=== PATIENT | female | born 1945 | race Caucasian/White ===

== ENCOUNTER 2017-09-23 15:36 | Emergency (ER) | payer MEDICARE ==
[~2017-09-23] VITALS: Ht 170.2 cm; Wt 95.3 kg
[2017-09-23] MEDS ORDERED: OXYBUTYNIN 5 MG5 M2 PO (15:48)
[2017-09-23] MEDS ORDERED: ATENOLOL-CHLOR1 EACH PO (15:49)
[2017-09-23] MEDS ORDERED: CELEXA20 MG PO (15:49)
[2017-09-23] MEDS ORDERED: NORCO 5-325 TA1 EACH PO (17:38)
[2017-09-23 18:18] VITALS: BP 127/70
[2017-10-07] MEDS ORDERED: ALLEGRA ALLERGY60 MG PO (11:04)
[2017-10-07] MEDS ORDERED: PRILOSEC OTC20 MG PO (11:04)
== END 2017-09-23 18:19 | disposition home or self-care (01) ==
LOC: M.ERS 15:36
DX: S52.091A Other fracture of upper end of right ulna, initial encounter for closed fracture (principal); S42.211A Unspecified displaced fracture of surgical neck of right humerus, initial encounter for closed fracture; I10 Essential (primary) hypertension; F17.210 Nicotine dependence, cigarettes, uncomplicated; Z88.0 Allergy status to penicillin; W01.0XXA Fall on same level from slipping, tripping and stumbling without subsequent striking against object, initial encounter; Y93.01 Activity, walking, marching and hiking; Y92.481 Parking lot as the place of occurrence of the external cause; Y99.8 Other external cause status

== ENCOUNTER 2017-10-08 06:01 | Observation (INO) | payer MEDICARE ==
[~2017-10-08] VITALS: Ht 170.2 cm; Wt 95.3 kg
[~2017-10-08 06:01] MED LIST: ALLEGRA ALLERGY60 MG PO; ATENOLOL-CHLOR1 EACH PO; CELEXA20 MG PO; NORCO 5-325 TA1 EACH PO; OXYBUTYNIN 5 MG5 M2 PO; PRILOSEC OTC20 MG PO
[2017-10-08] MEDS ORDERED: TYLENOL EXTRA500 MG PO (06:22)
[2017-10-08 06:31] VITALS: BP 129/80
[2017-10-08 06:34] LABS: HEMOGLOBIN 13.6 gm/dL (12.0-15.0); MCH 31.1 pg (26.0-34.0); MCHC 34.2 g/dL (28.0-37.0); MPV 8.3 fl. (7.2-11.1); RBC 4.39 mil/uL (4.20-5.00); RDW-CV 15.3 % (10.5-14.5); WBC 6.6 thou/uL (4.0-11.0)
[2017-10-08 06:52] LABS: CALCIUM 9.2 mg/dL (8.5-10.1); CREATININE 1.1 mg/dL (0.6-1.3); POTASSIUM 3.6 mmol/L (3.5-5.1)
--- NOTE | 2017-10-08 11:17 | NUR ---
PATIENT ARRIVED ON UNIT FROM PACU AT 1115. COMPLETED REASSESSMENT. VITAL SIGNS AND SPO2 STABLE. CAPNO PLACED. SCD'S IN PLACE. NO NAUSEA AND VOMITING. PATIENT DENIES PAIN AT THIS TIME. SLING AND ICE PACK IN PLACE. FALL CONTRACT SIGNED. COMPLETED HOURLY ROUNDING. CALL LIGHT WITHIN REACH. WILL CONTINUE TO MONITOR.
[2017-10-08 11:49] VITALS: BP 138/73
--- NOTE | 2017-10-08 16:07 | NUR ---
PATIENT REMAINED ALERT AND ORIENTED X'S 4. VITAL SIGNS AND SPO2 STABLE. CAPNO IN PLACE. PAIN WELL CONTROLLED WITH PAIN MEDS. TOLERATED DIET, NO NAUSEA AND VOMITING. VOIDED WITHOUT ISSUE. IV CLEAN, FLUIDS INFUSING. SCD'S, YELLOW SOCKS IN PLACE. SLING OVER SHOULDER IN PLACE. FRESH ICE PACK. COMPLETED HOURLY ROUNDING. CALL LIGHT WITHIN REACH. WILL CONTINUE TO MONITOR.
[2017-10-08 16:17] VITALS: BP 131/68
--- NOTE | 2017-10-08 17:28 | EKG ---
[place] [address] ELECTROCARDIOGRAM REPORT Name: NICK WELLS Room: [address]#: [id number] Admission: 10/08/17 Attend Phys: Kai Do DO Discharge: Date of : 49 Report #: [id number] THIS REPORT FOR: //name// [facility] Test Date: 2017-10-08 Test Time: 06:35:01 Pat Name: NICK VALDERRAMATAYLORChris Department: Room: [facility] Gender: F Seasonal Warehouse Associate: JEANINE : 1945 Requested By: Kai Do Order Number: [id number] Jordi MD: Mukesh Lange Measurements Intervals [place] Rate: 45 P: 48 DE: 183 QRS: 18 QRSD: 90 T: 35 QT: 502 QTc: 435 Interpretive Statements Sinus bradycardia Baseline wander in lead(s) V6 No previous ECG available for comparison Electronically Signed On 10-08-2017 17:28:20 CDT by Mukesh Lange [email or web address] <ELECTRONICALLY SIGNED> By: Mukesh Lange MD, [facility] 10/08/17 1728 4 4 Mukesh Lange MD, FACC /EPI
[2017-10-09] VITALS: BP 119/69
[2017-10-09 04:00] VITALS: BP 134/68
--- NOTE | 2017-10-09 07:25 | NUR ---
PATIENT HAS SLEPT WELL THROUGHOUT THE NIGHT WITHOUT ANY ISSUES. PAIN CONTROLLED WITH ORAL PAIN MEDICATION. VSS ON 3L 02 VIA NASAL CANNULA. DRESSING TO RIGHT ARM IS C/D/I AND SLING IN PLACE. ICE PACK TO RIGHT SHOULDER PRN. IV IN LEFT WRIST-SL. PATIENT INSTRUCTED TO USE CALL LIGHT WHEN NEEDING ASSISTANCE. HOURLY ROUNDS MADE. WILL CONTINUE WITH PLAN OF CARE AND NURSING TO MONITOR.
[2017-10-09 08:00] VITALS: BP 140/70
[2017-10-09] MEDS ORDERED: HYDROCODONE-AP1 EAC6 PO (12:06)
[2017-10-09 12:14] VITALS: BP 140/70
[2017-10-09] MEDS ORDERED: ASPIR 8181 MG PO (12:27)
--- NOTE | 2017-10-09 16:00 | NUR ---
PT.BEING DISCHARGED TODAY. SAID HER PAIN IS UNDER CONTROL. GAIT STEADY. SHE SAID HER SON IS COMING TO STAY WITH HER UNTIL SATURDAY. SHE HAS BEEN STAYING AT THE '[facility]END[facility] STAY[facility] HOTEL IN [facility]. SHE SAID SHE DID LIVE IN [place] BUT MOVED TO [place] TO BE CLOSER TO HER MOM. THEY RECENTLY HAD TO MOVE HER MOM TO A LTC FACILITY IN [place]. SHE SAID AFTER SHE GETS BETTER SHE WILL TRY TO FIND A HOUSE IN [place]. PT.SAID SHE DOES NOT USE ANY DME AND IS NORMALLY [place] HOME. HER SISTER IS COMING TO PICK HER UP. SHE WAS INQUIRING ABOUT HOW TO GET ON MEDICAID. TOLD HER I WOULD MAKE A REFERRAL TO [facility] AND THEY WOULD CALL HER TO SEE IF SHE MIGHT QUALIFY. FAXED FACE SHEET TO JOSE [phone].
--- NOTE | 2017-11-05 10:45 | H ---
[address] [address] HISTORY AND PHYSICAL Name: NICK WELLS Natasha Room: [address] [place] Son#: [id number] Admission: 10/08/17 Attend Phys: Kai Do DO Discharge: 10/09/17 Date of : 49 Report #: [id number] THIS REPORT FOR: //name// CC: Kai Do NO PCP DATE OF SERVICE: 10/08/2017 HISTORY OF PRESENT ILLNESS: The patient is a 71-year-old female who presents to [facility] for operative fixation of her right elbow. She saw my partner, Dr. Coe in clinic on 10/03. Dr. Coe contacted me directly regarding this patient's care and her fracture. We both agree that this would require operative fixation, as it was a displaced olecranon fracture. He had discussed surgery with the patient and her son in detail at that point in time and I saw her this morning and she is complaining of minimal pain. No numbness and tingling in her extremity. She has no issues, complaints or concerns. She had some bruising and swelling before; however, she says that she feels like that has resolved, as she had bruising in her fingers and that has gone away. When I asked her when she injured this, she injured it the Saturday before her emergency department visit, which was on 09/23. Therefore, this fracture is approximately 20 days out from injury at this point. She currently rates her pain at 4/10. ALLERGIES: PENICILLIN, which only causes hives. MEDICATIONS: Mary Kate, oxybutynin, atenolol, hydrochlorothiazide, citalopram, hydrocodone and acetaminophen given to her by the emergency department. SOCIAL HISTORY: She lives alone, is retired. She denies alcohol use. She does smoke tobacco products daily, at least 1 pack a day per her report. Denies illicit drug use. PAST MEDICAL HISTORY: Anxiety, depression, urinary incontinence, gastric reflux, gout, hyperlipidemia, hypertension. PAST SURGICAL HISTORY: Hysterectomy with ovaries, brain surgery. Orthopedic history of right total knee replacement. FAMILY HISTORY: Cardiovascular disease, osteoarthritis, hypertension, thyroid disease. REVIEW OF SYSTEMS: A 14-point was completed and is negative today except for musculoskeletal. See HPI for right upper extremity. PHYSICAL EXAMINATION: VITAL SIGNS: Her vital signs were reviewed. She is 5 feet 7 inches tall, [place] [address] HISTORY AND PHYSICAL Name: NICK WELLS Room: [address]#: [id number] Admission: 10/08/17 Attend Phys: Kai Do DO Discharge: 10/09/17 Date of : 49 Report #: [id number] weight 110 pounds. Overall, her vitals are stable today. GENERAL: She is alert and oriented times 3. HEENT: Head normocephalic. Eyes: Extraocular muscles are intact bilaterally. Ears slightly decreased hearing bilaterally. Nose: Nares patent. LUNGS: Nonlabored breathing. CARDIOVASCULAR: She had a palpable radial pulse and good cap refill in the right upper extremity. ABDOMEN: Soft. PSYCHIATRIC: She is cooperative. NEUROLOGIC: Intact distally in that extremity. MUSCULOSKELETAL: Splint was taken down. There is no excoriation. The skin is intact with good wrinkle sign. Swelling is resolved. When comparing to previous notes, minimal bruising. Compartments soft and compressible. IMAGING DATA: Imaging reviewed from [facility], as well as from our office shows displaced comminuted olecranon fracture. IMPRESSION: Closed displaced comminuted right olecranon fracture. PLAN: We had a long conversation today regarding her diagnosis and the recommendation of operative fixation of this fracture. I addressed any questions she had regarding the plan for surgery. I went over the risks and complications of surgery, they include, but are not limited to infection that could require surgical treatment, long-term antibiotics and/or sequela of end-organ damage, Clostridium difficile colitis, resistance, hematopoietic dysfunction etc, neurovascular injury that could be permanent, limb and life threatening, wound healing complications that could require long-term wound care, plastic surgery, and other issues bleeding and its associated risks, continued pain, worsening of pain, decreased function in that extremity. Discussed the patient's stiffness is very likely, especially including full extension to 0 degrees would be unlikely after this injury and surgery, malunion, nonunion, progression to arthritis, instability of the elbow, failure of hardware, failure of bone, periprosthetic fracture, need for further intervention or surgery for any reason, deep venous thrombosis, pulmonary embolism, myocardial infarction, stroke, possible . Anesthetic related complications would be discussed by the anesthesia team prior to surgery. There is also the possibility of unforeseen complications, would be addressed upon presentation. Her son was present during this entire conversation as well. After addressing any questions that they had regarding that discussion, they acknowledged and accepted those risks and stated that they understood them as presented to them. They do wish to proceed with surgery. We obtained her verbal and written consent to proceed today. Plan is for 23-hour observation. I also discussed with them at length that smoking cessation is very important. Smoking significantly increases her risk from baseline of all the above-mentioned complications; however, it specifically increases the risks of infection, wound healing complications, malunion, nonunion, [place] [address] HISTORY AND PHYSICAL Name: NICK WELLS Room: [address] [place] Son#: [id number] Admission: 10/08/17 Attend Phys: Kai Do DO Discharge: 10/09/17 Date of : 49 Report #: [id number] thrombosis, pulmonary embolism, myocardial infarction, stroke. She understands this. States is going to be difficult for her to try. I offered her what resources I have. She says she is going to try to quit on her own at this time. <ELECTRONICALLY SIGNED> By: Kai Do DO 11/05/17 1045 0746 0829Kai Do DO /nt
--- NOTE | 2017-11-05 10:58 | OP ---
[address] [address] OPERATIVE REPORT Name: RUSSELLNICK Natasha Room: [address] [place] Son#: [id number] Admission: 10/08/17 Attend Phys: Kai Do DO Discharge: 10/09/17 Date of : 49 Report #: [id number] THIS REPORT FOR: //name// CC: [facility] physician/PCP Kai Do PREOPERATIVE DIAGNOSIS: Right olecranon fracture, comminuted, closed, displaced. POSTOPERATIVE DIAGNOSIS: Right olecranon fracture, comminuted, closed, displaced. PROCEDURES: 1. Open reduction and internal fixation of a right comminuted olecranon fracture. 2. Physician-directed fluoroscopy less than 1 hour. SURGEON: Kai Do DO. CLEAT THROWER: Darrian Dennis DO. ANESTHESIA: General. ANTIBIOTICS: Ancef IV preoperatively. FLUIDS: Lactated Ringer's 1100 mL. ESTIMATED BLOOD LOSS: 25 mL. COMPLICATIONS: None. SPECIMENS: None. DRAINS: None. CONDITION: The patient is stable to PACU. INDICATIONS FOR PROCEDURE: The patient is a 71-year-old female. She had sustained a fall that led to an olecranon fracture. She presented to my partner, Dr. Coe's clinic, who contacted me directly in regards to her care. We both recommended treatment of operative fixation. I had a long conversation with her today regarding the risks and complications of surgery. Please see my consultation note for full details regarding the discussion. We obtained her verbal and written consent to proceed. DESCRIPTION OF PROCEDURE: I marked the right upper extremity in the presence of the operative team members and everyone agreed this was correct. She was taken [address] [address] OPERATIVE REPORT Name: NICK WELLS Room: [address] [place] Son#: [id number] Admission: 10/08/17 Attend Phys: Kai Do DO Discharge: 10/09/17 Date of : 49 Report #: [id number] back to the operative suite, where a briefing was performed indicating correct patient, procedure, site, antibiotics and that implants were present and sterile. All team members agreed. She was transferred over to the operative table in the supine position, well padded and secured. General anesthetic administered. A well-padded tourniquet was placed proximally on the right upper extremity. Right upper extremity was then sterilely prepped and draped in the standard fashion. Timeout performed indicating correct patient, procedure, site, antibiotics and implants were present and sterile. All team members agreed. We esmarched extremity and inflated the tourniquet at 250 mmHg. Our incision was centered over the ulna, at the tip of the olecranon. We had to curve this ulnarly as she had significant excoriation along the radial side. I did not want to take a skin incision close to this area, scalpel through skin. Careful soft tissue dissection down to the fascial layer along the ulna. Her fracture had disrupted the tissue in that area and it was only bursal in nature. We were down through the fracture site in this area. Proximally, we continued up until we got along to the triceps. Distally, we began by incising just off the crest of the ulna and made sure that we elevated the flaps for closure over our plate later. With that fascia, continued this dissection along to our fracture site. This fracture was 20 days old, making this fracture difficult to find the original ones and reduce, at least 2 times as hard. We used curettes, hemostats and gently used a rongeur to remove any fibrous tissue that was in this area. Once we had got down to the cortical curtis, we were then able to hold this together with a clamp and then two K wires. We brought in the C-arm confirming our reduction with adequate along the cortical curtis. However, there was depressed impaction of the articular segment; therefore we removed our reduction, found an articular area that has been impacted and used a hemostat to gently spread this opening and get back with articular reduction. We then reclamped our fracture site and replaced our K wires, brought in C-arm and confirmed that our cortical reduction was excellent and that we had restored this articular congruity. At that point in time, we then fashioned a plate and pinned this into position. Prior to pinning the plate into position, we had made an incision through the triceps so that the plate would lay down onto the bone. We found this incision was in line with the triceps fibers and only made what was necessary to get the plate placement. We then brought in the C-arm confirming our reduction was excellent and plate placement was excellent. We first began by placing a cortical screw along the shaft. We then drilled a home-run screw locking and then two other locking screws within the proximal fragments and the remaining two others along the shaft the third cortical screw that was the most proximal of the 3 did not have very good purchase. Therefore, this was exchanged and we placed locking screw. At this point in time, all hardware was in position. We confirmed final C-arm images with all K wires and clamps removed. We had an excellent stability of her fracture, her elbow stability, full extension, full flexion and full pronation and supination with no blocked motion. All screws were of appropriate length and extra-articular. Fracture reduction and hardware position were excellent. We [place] [id number] OPERATIVE REPORT Name: NICK WELLS Room: [address] [place] Son#: [id number] Admission: 10/08/17 Attend Phys: Kai Do DO Discharge: 10/09/17 Date of : 49 Report #: [id number] saved those images. Tourniquet was let down. Total tourniquet time was 65 minutes. We maintained hemostasis, thoroughly irrigated with 1000 mL of normal saline. Closure was with 0 Vicryl deep to reapproximate the fascia. We were able to get full closure over our plate and 0 Vicryl was also used to reapproximate our triceps, where we had made the incision in line with the fibers. We then re-irrigated the subcutaneous tissue and closure was with 2-0 Monocryl buried deep and then a running stitch of 3-0 nylon. A debriefing was performed, where we confirmed the procedure, blood loss and that all counts were correct and final; all team members agreed. Sterile dressings were applied with Xeroform gauze, 4 x 4s, soft roll and Satnam wrap. She was placed into a sling. The injury is already 20 days old; therefore did not want to place her into a splint. It was not chosen as beginning range of motion is going to be important. If I delayed her range of motion any longer, I would have significant concerns of her developing stiffness. She was taken to PACU in stable condition. POSTOPERATIVE COURSE AND EVALUATION: I spoke with her son per her wishes, addressed any questions he had. He thanked me for my time and efforts. She was resting in the PACU. All vital signs were stable. Pain was overall controlled. Neurovascularly, she was intact distally in that extremity. Dressings were clean, dry and intact. PACU films showed stable internal fixation and fracture reduction. She is going to be admitted for 23-hour observation with the plan to discharge tomorrow morning. Aspirin as directed for DVT prophylaxis. Non weight bearing of her operative extremity. Range of motion encouraged. <ELECTRONICALLY SIGNED> By: Kai Do DO 11/05/17 1058 0850 1321Janirali Do DO /nt
== END 2017-10-09 17:26 | disposition home or self-care (01) ==
LOC: M.SUR 06:01 → M.TBA 10:27 → M.ORTHSURG 10:53 → M.SUR 14:17 → M.ORTHSURG 10-09 17:26
PROVIDERS: ADMIT Orthopaedic Surgery
DX: S52.021A Displaced fracture of olecranon process without intraarticular extension of right ulna, initial encounter for closed fracture (principal); I10 Essential (primary) hypertension; F41.9 Anxiety disorder, unspecified; F32.9 Major depressive disorder, single episode, unspecified; K21.9 Gastro-esophageal reflux disease without esophagitis; E78.5 Hyperlipidemia, unspecified; M10.9 Gout, unspecified; X58.XXXA Exposure to other specified factors, initial encounter; Y93.89 Activity, other specified; Y92.89 Other specified places as the place of occurrence of the external cause; Y99.8 Other external cause status; Z90.710 Acquired absence of both cervix and uterus; Z98.890 Other specified postprocedural states; Z88.0 Allergy status to penicillin

== ENCOUNTER 2018-07-22 22:28 | Inpatient (IN) | payer OTHER, MEDICAID ==
[~2018-07-22] VITALS: Ht 170.2 cm; Wt 95.0 kg
[~2018-07-22 22:28] MED LIST changes: +ASPIR 8181 MG PO; +HYDROCODONE-AP1 EAC6 PO; +TYLENOL EXTRA500 MG PO
[2018-07-22 22:31] VITALS: BP 110/77
[2018-07-22 23:00] LABS: ABSOLUTE BASOPHILS 0.1 thou/uL (0.0-0.2); ABSOLUTE EOSINOPHILS 0.1 thou/uL (0.0-0.7); ABSOLUTE LYMPHOCYTES 1.5 thou/uL (0.8-5.3); ABSOLUTE MONOCYTES 0.8 thou/uL (0.0-1.2); ABSOLUTE NEUTROPHILS 9.2 thou/uL (1.6-8.1); BASOPHILS 0.7 %; EOSINOPHILS 1.1 %; HEMATOCRIT 39.5 % (37.0-47.0); HEMOGLOBIN 13.1 gm/dL (12.0-15.0); MCH 29.8 pg (26.0-34.0); MCHC 33.1 g/dL (28.0-37.0); MCV 89.9 fL (80.0-100.0); MONOCYTES 6.8 %; MPV 8.3 fl. (7.2-11.1); NUCLEATED RBCS 0 /100WBC; PLATELET COUNT* 263 thou/uL (150-400); POLYS 78.4 %; RDW-CV 15.4 % (10.5-14.5); WBC 11.7 thou/uL (4.0-11.0)
[2018-07-22 23:01] LABS: URINE BILIRUBIN NEGATIVE (Negative); URINE BLOOD TRACE (Negative); URINE CLARITY CLEAR; URINE COLOR YELLOW; URINE GLUCOSE-RANDOM NEGATIVE (Negative); URINE KETONES NEGATIVE (Negative); URINE LEUKOCYTES-REFLEX NEGATIVE (Negative); URINE NITRITE-REFLEX NEGATIVE (Negative); URINE PROTEIN NEGATIVE (Negative); URINE SPECIFIC GRAVITY <= 1.005 (1.005-1.030); URINE UROBILINOGEN 0.2 E.U./dl (0.2-1.0)
[2018-07-22 23:07] LABS: ANION GAP 11 mmol/L (7-16); BUN 31 mg/dL (7-18); CALCIUM 9.3 mg/dL (8.5-10.1); CHLORIDE 101 mmol/L (98-107); CO2 27 mmol/L (21-32); CREATININE 1.2 mg/dL (0.6-1.3); GLUCOSE 126 mg/dL (70-99); POTASSIUM 3.9 mmol/L (3.5-5.1); SODIUM 139 mmol/L (136-145)
[2018-07-22 23:16] LABS: TROPONIN-I LEVEL <0.06 ng/mL (<0.06)
[2018-07-23 01:35] VITALS: BP 142/73
[2018-07-23 02:00] VITALS: BP 129/71
[2018-07-23] MEDS ORDERED: SINGULAIR 10 MG10 M1 PO (02:09)
[2018-07-23] MEDS ORDERED: TYLENOL EXTRA500 MG PO (02:12)
[2018-07-23 06:15] LABS: PROTIME 10.3 Seconds (9.20-11.50)
[2018-07-23 08:31] VITALS: BP 140/72
--- NOTE | 2018-07-23 13:21 | EKG ---
[place] [address] ELECTROCARDIOGRAM REPORT Name: NICK WELLS Room: [address] ADM IN .R.#: [id number] Admission: 07/22/18 Attend Phys: Ken Montanez Discharge: Date of : 49 Report #: [id number] THIS REPORT FOR: //name// [facility] ED Test Date: 2018-07-23 Test Time: 00:07:26 Pat Name: NICK VALDERRAMATAYLORChris Department: Room: [facility] Gender: F Senior Inspector: WILLIAM : 1945 Requested By: Debbie Wilson Order Number: [id number] MD: Isaac Alvarez Measurements Intervals [place] Rate: 62 P: 54 IA: 201 QRS: 25 QRSD: 122 T: 46 QT: 460 QTc: 468 Interpretive Statements Sinus rhythm Nonspecific intraventricular conduction delay Compared to ECG 10/08/2017 06:35:01 Intraventricular conduction delay now present Sinus bradycardia no longer present Electronically Signed On 07-23-2018 13:21:03 CDT by Isaac Alvarez [email or web address] <ELECTRONICALLY SIGNED> By: Isaac Alvarez MD, [facility] 07/23/18 1321 0007 0007 Isaac Alvarez MD, [facility] /EPI
[2018-07-23 18:00] VITALS: BP 137/72
[2018-07-23 20:00] VITALS: BP 138/79
[2018-07-24] VITALS: BP 122/63
[2018-07-24 03:52] LABS: ABSOLUTE LYMPHOCYTES 0.3 thou/uL (0.8-5.3); ABSOLUTE MONOCYTES 0.7 thou/uL (0.0-1.2); ABSOLUTE NEUTROPHILS 11.8 thou/uL (1.6-8.1); BASOPHILS 0.1 %; HEMATOCRIT 33.8 % (37.0-47.0); HEMOGLOBIN 11.3 gm/dL (12.0-15.0); LYMPHOCYTES 2.2 %; MCH 30.2 pg (26.0-34.0); MCHC 33.6 g/dL (28.0-37.0); MCV 89.9 fL (80.0-100.0); MONOCYTES 5.8 %; MPV 9.2 fl. (7.2-11.1); NUCLEATED RBCS 0 /100WBC; PLATELET COUNT* 208 thou/uL (150-400); POLYS 91.9 %; RBC 3.76 mil/uL (4.20-5.00); RDW-CV 15.1 % (10.5-14.5); WBC 12.9 thou/uL (4.0-11.0)
[2018-07-24 04:21] LABS: CALCIUM 8.6 mg/dL (8.5-10.1); MAGNESIUM 1.7 mg/dL (1.8-2.4); POTASSIUM 3.6 mmol/L (3.5-5.1)
[2018-07-24 07:30] VITALS: BP 121/64
[2018-07-24 20:00] VITALS: BP 121/65
[2018-07-25 05:33] LABS: ABSOLUTE LYMPHOCYTES 0.8 thou/uL (0.8-5.3); ABSOLUTE NEUTROPHILS 10.4 thou/uL (1.6-8.1); BASOPHILS 0.3 %; EOSINOPHILS 0.4 %; HEMATOCRIT 33.2 % (37.0-47.0); HEMOGLOBIN 11.3 gm/dL (12.0-15.0); LYMPHOCYTES 6.6 %; MCH 30.1 pg (26.0-34.0); MCHC 34.1 g/dL (28.0-37.0); MCV 88.5 fL (80.0-100.0); MONOCYTES 7.8 %; MPV 9.1 fl. (7.2-11.1); NUCLEATED RBCS 0 /100WBC; PLATELET COUNT* 215 thou/uL (150-400); POLYS 84.9 %; RBC 3.75 mil/uL (4.20-5.00); RDW-CV 15.3 % (10.5-14.5); WBC 12.2 thou/uL (4.0-11.0)
[2018-07-25 05:40] LABS: CALCIUM 8.7 mg/dL (8.5-10.1); CREATININE 1.6 mg/dL (0.6-1.3); POTASSIUM 3.5 mmol/L (3.5-5.1)
--- NOTE | 2018-07-25 06:24 | OP ---
[facility] [place] [place] [address] OPERATIVE REPORT Name: NICK WELLS Room: [address] IN ..#: [id number] Admission: 07/22/18 Attend Phys: Ken Montanez Discharge: Date of : 49 Report #: [id number] THIS REPORT FOR: //name// CC: Tammie Montes DICTATED BY: Jasiel cOasio DO DATE OF SERVICE: 07/23/2018 PREOPERATIVE DIAGNOSIS: Left basicervical intertrochanteric hip fracture, closed. POSTOPERATIVE DIAGNOSIS: Left basicervical intertrochanteric hip fracture, closed. PROCEDURE: 1. Open reduction internal fixation of the left hip utilizing the Tanner gamma nail with a 130-degree size 11 nail and a 95-mm lag screw and 37.5-mm distal interlocking screw. 2. Physician-directed fluoroscopy less than 1 hour. SURGEON: William Joseph DO. FOUNDATION ASSISTANT: Jasiel Ocasio DO. ANESTHESIA: General. FLUIDS: Crystalloid per anesthesia. ESTIMATED BLOOD LOSS: 100 mL. DRAINS: None. SPECIMENS: None. COMPLICATIONS: None. CONDITION: Stable to PACU. DISPOSITION: PACU to Med/Surg. ANTIBIOTICS: 600 mg of clindamycin IV preop. INDICATIONS FOR PROCEDURE: The patient is a 72-year-old female who sustained a fall down two stairs at home last night. She fell directly onto her left hip [facility] [place] [address] OPERATIVE REPORT Name: NICK WELLS Room: [address] IN M.R.#: [id number] Admission: 07/22/18 Attend Phys: Ken Montanez Discharge: Date of : 49 Report #: [id number] and had immediate pain and inability to ambulate. She presented to the [facility] ER where x-rays identified a left basicervical intertrochanteric femur fracture. Surgery was recommended. The risks, benefits, alternatives, indications and possible complications associated with surgery were discussed with the patient and she agreed to proceed. DESCRIPTION OF PROCEDURE: The patient was met in the preoperative area. The correct site was marked. Consent was obtained. She was transferred to the operative suite and given the benefit of general anesthesia. She was then transferred to the fracture table and secured into place. All bony prominences were well-padded. She was given antibiotics within 30 minutes prior to the procedure. A timeout was performed to identify the correct patient, procedure, operative site and surgeon. All in the room were in agreement. A reduction maneuver was performed with traction, internal rotation and adduction of the left lower extremity. An appropriate reduction was verified on fluoroscopy. The left hip was then sterilely prepped and draped in the normal sterile fashion. The procedure began with the proximal incision proximal to the greater trochanter. The starting point was localized with a guidewire and fluoroscopy. The opening reamer was utilized to gain access into the intramedullary canal. A guidewire was then placed into the intramedullary canal of the femur. Appropriate position of this was confirmed on fluoroscopy. A size 13 reamer was then used to ream past the isthmus of the femur. A size 11 nail was then selected and placed into the femur in the appropriate position confirmed again on fluoroscopy. Reduction was held with a Mercado elevator pressing posteriorly on the distal fragment. The guidewire was then removed and the lag screw was placed into the femur using a guidewire. The appropriate position of this was confirmed on orthogonal fluoroscopy. The distal interlocking screw was then placed and sized appropriately. The set screw was also placed after correct positioning of the lag screw. The external guide was removed and then, final pictures were taken. The IT band was closed with 0 Vicryl in [id number]-[id number] fashion after all wounds were thoroughly irrigated. The skin was then reapproximated with 2-0 Vicryl in simple interrupted buried fashion followed by mane on the skin. A sterile Mepilex was then applied to the incisions. All needle and sponge counts were correct x 2 at the end of the case. Anesthesia was reversed by the anesthesia team. She was transferred to the PACU in stable condition. There were no complications apparent. Dr. Joseph was present and scrubbed throughout all critical aspects of the case. <ELECTRONICALLY SIGNED> By: William Joseph DO 07/25/18 0624 1707 1731Cadam Joseph DO /nt
[2018-07-25 09:10] VITALS: BP 99/64
[2018-07-25 15:32] VITALS: BP 121/66
[2018-07-25 20:00] VITALS: BP 100/70
[2018-07-26 04:59] LABS: CALCIUM 8.7 mg/dL (8.5-10.1); CREATININE 1.2 mg/dL (0.6-1.3); POTASSIUM 3.3 mmol/L (3.5-5.1)
[2018-07-26 07:20] VITALS: BP 118/68
[2018-07-26 16:00] VITALS: BP 107/65
[2018-07-26 21:00] VITALS: BP 113/63
[2018-07-27 05:03] LABS: MAGNESIUM 1.9 mg/dL (1.8-2.4)
[2018-07-27 05:04] LABS: POTASSIUM 4.6 mmol/L (3.5-5.1)
[2018-07-27 07:48] VITALS: BP 132/70
[2018-07-27 16:40] VITALS: BP 126/71
[2018-07-27 20:11] VITALS: BP 139/78
[2018-07-28 04:13] LABS: HEMATOCRIT 28.4 % (37.0-47.0); HEMOGLOBIN 9.9 gm/dL (12.0-15.0); MCH 30.5 pg (26.0-34.0); MCHC 34.7 g/dL (28.0-37.0); MCV 87.8 fL (80.0-100.0); MPV 8.7 fl. (7.2-11.1); RBC 3.24 mil/uL (4.20-5.00); RDW-CV 15.2 % (10.5-14.5); WBC 8.3 thou/uL (4.0-11.0)
[2018-07-28 04:25] LABS: CREATININE 1.2 mg/dL (0.6-1.3); MAGNESIUM 1.8 mg/dL (1.8-2.4); POTASSIUM 3.9 mmol/L (3.5-5.1)
[2018-07-28 08:00] VITALS: BP 109/74
[2018-07-28 16:00] VITALS: BP 95/66
[2018-07-28 20:00] VITALS: BP 114/77
[2018-07-29] MEDS ORDERED: ELIQUIS2.5 MG PO (09:28)
[2018-07-29] MEDS ORDERED: SENNA8.6 MG PO (09:31)
[2018-07-29] MEDS ORDERED: SENOKOT-S1 TA2 PO ×2 (09:32→11:20)
[2018-07-29] MEDS ORDERED: HYDROCODON-ACE1 EAC7 PO (09:48)
[2018-07-29] MEDS ORDERED: IPRAT-ALBUT 0.5-3 ML INH (09:48)
[2018-07-29] MEDS ORDERED: OXYCODONE HCL 55 MG PO (09:49)
[2018-07-29 11:15] VITALS: BP 114/77
[2018-07-29 11:29] VITALS: BP 114/77
[2018-07-29 12:08] VITALS: BP 114/77
[2018-07-29 17:11] VITALS: BP 114/77
== END 2018-07-29 17:00 | DRG 480 ==
LOC: M.ERS 22:28 → M.2W 23:40 → M.TBA-ER 23:40 → M.ORTHSURG 23:40 → M.2W 07-23 01:46 → M.ORTHSURG 07-24 11:17
PROVIDERS: Emergency Medicine; Family Medicine; Internal Medicine; Orthopaedic Surgery; ADMIT Internal Medicine
PROC: 0QS706Z Reposition Left Upper Femur with Intramedullary Internal Fixation Device, Open Approach (ICD-10-PCS; principal; 2018-07-23)
DX: S72.145A Nondisplaced intertrochanteric fracture of left femur, initial encounter for closed fracture (principal); N17.0 Acute kidney failure with tubular necrosis; J98.11 Atelectasis; R09.02 Hypoxemia; W01.0XXA Fall on same level from slipping, tripping and stumbling without subsequent striking against object, initial encounter; N18.3 Chronic kidney disease, stage 3 (moderate); I12.9 Hypertensive chronic kidney disease with stage 1 through stage 4 chronic kidney disease, or unspecified chronic kidney disease; F17.210 Nicotine dependence, cigarettes, uncomplicated; E83.42 Hypomagnesemia; J44.9 Chronic obstructive pulmonary disease, unspecified; R32 Unspecified urinary incontinence; Z96.651 Presence of right artificial knee joint; K21.9 Gastro-esophageal reflux disease without esophagitis; Y93.89 Activity, other specified; Y92.89 Other specified places as the place of occurrence of the external cause; Y99.8 Other external cause status; Z90.710 Acquired absence of both cervix and uterus; Z79.82 Long term (current) use of aspirin; Z88.0 Allergy status to penicillin; Z82.49 Family history of ischemic heart disease and other diseases of the circulatory system

== ENCOUNTER 2021-01-18 12:56 | Inpatient (IN) | payer OTHER ==
[~2021-01-18] VITALS: Ht 170.2 cm; Wt 80.8 kg
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
--- NOTE | ~2021-01-18 | EEG ---
[place] [address] EEG STUDY REPORT Name: NICK WELLS Room: [address] IN .R.#: [id number] Admission: 01/18/21 Attend Phys: Rogelio Gunderson MD Discharge: Date of : 49 Report #: [id number] THIS REPORT FOR: cc: Tammie Davis MD, Ghazal A. MD Khosla,Noah Mariano MD ~ DATE OF SERVICE: 01/19/2021 This patient is being evaluated for altered mental status. EEG was done by placing the electrode by standard 10-20 system of electrode placement. Both referential and sequential montages were used for recording. Background activity in this patient's EEG is about 7-8 Hz and 30 microvolt. Photic stimulation is unremarkable. The patient went to sleep that is associated with bilateral slowing and vertex sharp waves. Throughout the record, no active epileptiform activity was noticed. IMPRESSION: This is an abnormal EEG because it is disorganized and poorly formed that is nonspecific finding which can occur with encephalopathy, effect of psychotropic medication, dementia, etc. Clinical correlation is recommended. By: [id number] Mena MD /nt
[~2021-01-18 12:56] MED LIST changes: +ELIQUIS2.5 MG PO; +HYDROCODON-ACE1 EAC7 PO; +IPRAT-ALBUT 0.5-3 ML INH; +OXYCODONE HCL 55 MG PO; +SENNA8.6 MG PO; +SENOKOT-S1 TA2 PO; +SINGULAIR 10 MG10 M1 PO
[2021-01-18 13:03] VITALS: BP 118/81
[2021-01-18] MEDS ORDERED: VESICARE 5 MG TA5 M1 PO (13:06)
[2021-01-18 13:44] LABS: URINE BILIRUBIN NEGATIVE (Negative); URINE BLOOD 2+ (Negative); URINE CLARITY CLOUDY; URINE COLOR YELLOW; URINE GLUCOSE-RANDOM NEGATIVE (Negative); URINE KETONES NEGATIVE (Negative); URINE LEUKOCYTES 3+ (Negative); URINE NITRITE POSITIVE (Negative); URINE PROTEIN NEGATIVE (Negative)
[2021-01-18 13:53] LABS: SQUAMOUS 4-10 Moderate /LPF (0-3)
[2021-01-18 13:54] LABS: CASTS None Seen /LPF (None Seen); MUCUS 0-3 Light strn/LPF (None Seen); URINE WBC >25 Many /HPF (0-5)
[2021-01-18 13:55] LABS: BACTERIA >30 Many /HPF (None Seen); CRYSTALS None Seen /LPF (None Seen); URINE RBC 3-10 Few /HPF (0-2)
[2021-01-18 13:57] LABS: RENAL EPITHELIAL CELLS 4-10 Moderate /LPF (None Seen); TRANSITIONAL EPITHEL CELL 4-10 Moderate /LPF (None Seen)
[2021-01-18 13:59] LABS: HEMATOCRIT 32.7 % (37.0-47.0); MCH 28.9 pg (26.0-34.0); MCHC 33.8 g/dL (28.0-37.0); MCV 85.6 fL (80.0-100.0); MPV 7.3 fl. (7.2-11.1); NUCLEATED RBCS 0 /100WBC; PLATELET COUNT* 720 thou/uL (150-400); RBC 3.82 mil/uL (4.20-5.00); RDW-CV 15.1 % (10.5-14.5)
--- NOTE | 2021-01-18 14:09 | EKG ---
[place] [address] ELECTROCARDIOGRAM REPORT Name: NICK WELLS Room: [facility]#: [id number] Admission: 01/18/21 Attend Phys: Discharge: Date of : 49 Date of Service: 01/18/21 1305 Report #: [id number] THIS REPORT FOR: //name// [facility] ED Test Date: 2021-01-18 Test Time: 13:05:06 Pat Name: NICK WELLS Department: Room: Gender: F Billing Assistant: [facility] : 1945 Requested By: Edilson Kapoor Order Number: [id number] MD: Edwardo Zuluaga Measurements Intervals [place] Rate: 71 P: 67 SC: 155 QRS: 67 QRSD: 90 T: 85 QT: 448 QTc: 487 Interpretive Statements Sinus rhythm Atrial premature complexes Probable left atrial enlargement Nonspecific T abnrm, anterolateral leads Borderline prolonged QT interval Compared to ECG 07/23/2018 00:07:26 Atrial premature complex(es) now present Electronically Signed On 01-18-2021 14:09:12 RETAIL FIELD REPRESENTATIVE by Edwardo Zuluaga [email or web address] <ELECTRONICALLY SIGNED> By: Edwardo Zuluaga MD, [facility] 01/18/21 1409 1305 1305 Edwardo Zuluaga MD, [facility] /EPI
[2021-01-18 14:19] LABS: CALCIUM 8.8 mg/dL (8.5-10.1); CREATININE 1.2 mg/dL (0.6-1.3); POTASSIUM 3.2 mmol/L (3.5-5.1); TOTAL BILIRUBIN 0.7 mg/dL (<0.1-1.0); TOTAL PROTEIN 7.9 g/dL (6.4-8.2)
[2021-01-18 15:18] LABS: ABSOLUTE LYMPHOCYTES 1.5 thou/uL (0.8-5.3); ABSOLUTE MONOCYTES 0.1 thou/uL (0.0-1.2); ABSOLUTE NEUTROPHILS 9.4 thou/uL (1.6-8.1); PLATELET ESTIMATE INCREASED
[2021-01-18 15:19] LABS: HYPOCHROMASIA 1+; MICROCYTES Occasional
--- NOTE | 2021-01-18 19:02 | NUR ---
PT ATTEMPTING TO EAT; PT REPORTS PAIN INCREASED WITH MOVEMENT OF L SHOULDER; COMPLETED NIH; PT PASSED BEDSIDE SWALLOW
[2021-01-18 21:45] VITALS: BP 114/79; BP 125/75
[2021-01-18 23:59] VITALS: BP 122/83
[2021-01-19 04:00] VITALS: BP 116/78
[2021-01-19 04:54] LABS: ABSOLUTE BASOPHILS 0.1 thou/uL (0.0-0.2); ABSOLUTE EOSINOPHILS 0.1 thou/uL (0.0-0.7); ABSOLUTE LYMPHOCYTES 1.2 thou/uL (0.8-5.3); ABSOLUTE MONOCYTES 0.8 thou/uL (0.0-1.2); ABSOLUTE NEUTROPHILS 7.1 thou/uL (1.6-8.1); BASOPHILS 1.2 %; EOSINOPHILS 0.9 %; HEMATOCRIT 28.1 % (37.0-47.0); HEMOGLOBIN 9.6 gm/dL (12.0-15.0); LYMPHOCYTES 12.6 %; MCH 29.3 pg (26.0-34.0); MCHC 34.1 g/dL (28.0-37.0); MCV 85.9 fL (80.0-100.0); MONOCYTES 8.4 %; MPV 7.3 fl. (7.2-11.1); NUCLEATED RBCS 0 /100WBC; POLYS 76.9 %; RBC 3.27 mil/uL (4.20-5.00); RDW-CV 15.3 % (10.5-14.5); WBC 9.2 thou/uL (4.0-11.0)
[2021-01-19 04:55] LABS: CREATININE 1.1 mg/dL (0.6-1.3)
[2021-01-19 05:42] LABS: PLATELET COUNT* 521 thou/uL (150-400)
--- NOTE | 2021-01-19 08:16 | NUR ---
PT IS ABLE TO COMMUNICATE HER NEEDS TO STAFF WITH ONLY MINOR DIFFICULTY; SHE IS CONFUSED AT TIMES. CURRENT PAIN MEDICATION REGIMEN HAS BEEN ADEQUATE FOR CONTROLLING HER PAIN UP TO 0700 THIS MORNING. RUFFIN HAS BEEN PATENT UP TO 0700 TODAY. NEUROLOGY FOLLOWING.
[2021-01-19 09:00] VITALS: BP 113/77
[2021-01-19 12:00] VITALS: BP 97/65
--- NOTE | 2021-01-19 15:41 | NUR ---
CM ASSESSMENT: PT ALERT, BUT FORGETFUL. PT INFORMS THAT PRIOR TO ADMIT SHE WAS ACTIVE AND INDEPENDENT WITH ADL'S. PT USED A WALKER OR CANE FOR MOBILITY. PT HAS PAST HX OF HH. PT HAS PAST HX OF SNF AT [facility]. PT MAY BENEFIT FROM SNF AT D/C, BUT IS RESISTANT TO IT AT THIS TIME. CM ATTEMPTED TO CONTACT PT'S SON TO DISCUSS CM ASSESSMENT AND D/C PLANNING. NO ANSWER, BUT CM WILL F/U WITH PT'S SON AT ANOTHER TIME. CM WILL REMAIN AVAILABLE TO ASSIST AND FOLLOW NEEDED.
[2021-01-19 16:00] VITALS: BP 124/76
[2021-01-19 20:00] VITALS: BP 146/80
[2021-01-20 03:17] VITALS: BP 134/73
[2021-01-20 06:16] LABS: ABSOLUTE BASOPHILS 0.1 thou/uL (0.0-0.2); ABSOLUTE EOSINOPHILS 0.2 thou/uL (0.0-0.7); ABSOLUTE MONOCYTES 0.7 thou/uL (0.0-1.2); ABSOLUTE NEUTROPHILS 6.7 thou/uL (1.6-8.1); BASOPHILS 1.1 %; HEMATOCRIT 28.2 % (37.0-47.0); HEMOGLOBIN 9.5 gm/dL (12.0-15.0); LYMPHOCYTES 11.9 %; MCHC 33.5 g/dL (28.0-37.0); MCV 86.4 fL (80.0-100.0); MONOCYTES 7.7 %; MPV 7.7 fl. (7.2-11.1); NUCLEATED RBCS 0 /100WBC; PLATELET COUNT* 460 thou/uL (150-400); POLYS 77.3 %; RBC 3.27 mil/uL (4.20-5.00); RDW-CV 15.5 % (10.5-14.5); WBC 8.7 thou/uL (4.0-11.0)
[2021-01-20 06:26] VITALS: BP 127/74
[2021-01-20 06:38] LABS: ALBUMIN 1.6 g/dL (3.4-5.0); CALCIUM 8.3 mg/dL (8.5-10.1); CREATININE 0.9 mg/dL (0.6-1.3); POTASSIUM 4.2 mmol/L (3.5-5.1); TOTAL BILIRUBIN 0.4 mg/dL (<0.1-1.0); TOTAL PROTEIN 6.3 g/dL (6.4-8.2)
[2021-01-20 08:00] VITALS: BP 147/81
[2021-01-20 16:00] VITALS: BP 130/76
--- NOTE | 2021-01-20 16:23 | NUR ---
PLAN OF CARE: PHYSICIAN INFORMS THAT THE PT MAY BE MEDICALLY STABLE FOR D/C OVER THE WEEKEND. PT MAY BENEFIT FROM SNF AT D/C. HOWEVER PT RESISTANT. PT'S SON TO DISCUSS SNF WITH THE PT. PT/OT EVALS NEEDING TO ASSIST WITH CM D/C PLANNING AND PSOSSIBLE SNF PLACEMENT AT D/C. CM WILL REMAIN AVAILABLE TO ASSIST AND FOLLOW NEEDED.
[2021-01-20 20:00] VITALS: BP 151/84
[2021-01-21 07:38] LABS: GLYCOHEMOGLOBIN (HGB A1C) 5.5 % (4.8-5.6)
[2021-01-21 08:00] VITALS: BP 166/94
[2021-01-21 08:46] LABS: ABSOLUTE BASOPHILS 0.1 thou/uL (0.0-0.2); ABSOLUTE EOSINOPHILS 0.2 thou/uL (0.0-0.7); ABSOLUTE LYMPHOCYTES 0.8 thou/uL (0.8-5.3); ABSOLUTE MONOCYTES 0.6 thou/uL (0.0-1.2); ABSOLUTE NEUTROPHILS 5.8 thou/uL (1.6-8.1); BASOPHILS 1.4 %; EOSINOPHILS 2.8 %; HEMATOCRIT 26.5 % (37.0-47.0); LYMPHOCYTES 10.7 %; MCH 29.3 pg (26.0-34.0); MCHC 33.8 g/dL (28.0-37.0); MCV 86.6 fL (80.0-100.0); MONOCYTES 7.7 %; MPV 7.1 fl. (7.2-11.1); NUCLEATED RBCS 0 /100WBC; POLYS 77.4 %; RBC 3.06 mil/uL (4.20-5.00); RDW-CV 15.4 % (10.5-14.5); WBC 7.4 thou/uL (4.0-11.0)
[2021-01-21 08:49] LABS: PLATELET COUNT* 592 thou/uL (150-400)
[2021-01-21 08:55] LABS: ALBUMIN 1.6 g/dL (3.4-5.0); CREATININE 0.9 mg/dL (0.6-1.3); POTASSIUM 4.2 mmol/L (3.5-5.1); TOTAL BILIRUBIN 0.2 mg/dL (<0.1-1.0); TOTAL PROTEIN 6.2 g/dL (6.4-8.2)
[2021-01-21 12:00] VITALS: BP 147/86
[2021-01-21 16:00] VITALS: BP 175/95
--- NOTE | 2021-01-21 16:58 | NUR ---
ALERT ORIENTED, ANXIOUS AT TIMES. RUFFIN CATH DC'D PER ORDERS. TOLERATING DIET WITH NO COMPLAINTS OF NAUSEA. NO COMPLAINTS OF PAIN TO NURSING. ROOM AIR, NO SIGN OF RESPIRATORY DISTRESS. HOB ELEVATED, CALL LIGHT WITHIN REACH, WILL MONITOR.
[2021-01-21 20:00] VITALS: BP 168/105
[2021-01-22 01:42] VITALS: BP 170/85; BP 180/85
[2021-01-22 07:40] LABS: HEMATOCRIT 30.1 % (37.0-47.0); MCH 28.5 pg (26.0-34.0); MCHC 33.2 g/dL (28.0-37.0); MCV 85.9 fL (80.0-100.0); MPV 6.6 fl. (7.2-11.1); NUCLEATED RBCS 0 /100WBC; PLATELET COUNT* 715 thou/uL (150-400); RDW-CV 15.6 % (10.5-14.5); WBC 9.6 thou/uL (4.0-11.0)
[2021-01-22 07:48] LABS: ABSOLUTE NEUTROPHILS 7.6 thou/uL (1.6-8.1); PLATELET ESTIMATE INCREASED
[2021-01-22 07:49] LABS: ABSOLUTE EOSINOPHILS 0.2 thou/uL (0.0-0.7); ABSOLUTE MONOCYTES 0.8 thou/uL (0.0-1.2)
[2021-01-22 07:50] LABS: ABSOLUTE LYMPHOCYTES 1.1 thou/uL (0.8-5.3)
[2021-01-22 07:54] VITALS: BP 141/85
[2021-01-22 07:58] LABS: ALBUMIN 1.8 g/dL (3.4-5.0); CALCIUM 8.1 mg/dL (8.5-10.1); POTASSIUM 4.3 mmol/L (3.5-5.1); TOTAL BILIRUBIN 0.3 mg/dL (<0.1-1.0); TOTAL PROTEIN 6.6 g/dL (6.4-8.2)
[2021-01-22 12:19] VITALS: BP 140/90
[2021-01-22 16:00] VITALS: BP 172/100
--- NOTE | 2021-01-22 18:15 | NUR ---
Pt c/o headache this afternoon. Tylenol given per pt request. BP checked later and it was 170/100. Hydralazine given per prn order. Will recheck before end of shift. Otherwise no complaints. Will continue to monitor.
[2021-01-22 20:00] VITALS: BP 157/96
[2021-01-23 09:03] VITALS: BP 114/74
--- NOTE | 2021-01-23 15:02 | NUR ---
WOUND NURSE: PATIENT SEEN TO ADDRESS LEFT BUTTOCK PRESSURE INJURY MEASURING 5.0 X 1.0 X 0.1 CM. CONTAINS PINK NONGRANULATING TISSUE WITH PARTIAL THICKNESS TISSUE LOSS, NO PERIWOUND REDNESS, WARMTH, OR INDURATION. SKIN BREAKDOWN HAS OCCURRED OVER A PREVIOUSLY SCARRED AREA. CLEANSED WITH SOAP AND WATER, RINSED, THEN PATTED DRY. APPLIED SKIN PREP TO INTACT PERIWOUND TISSUE. APPLY AQUACEL AG UNDER EXUDERM, SECURED WITH SURESITE TRANSPARENT DRESSING. PATIENT INSTRUCTED ON MEASURES TO PROMOTE HEALING AND PREVENT COMPLICATIONS. PATIENT REPORTS SHE UNDERSTANDS. WILL OBTAIN WAFFLE SEAT CUSHION FOR PATIENT PRESENTS SITTING WOUNDS.
[2021-01-23 16:00] VITALS: BP 162/84
--- NOTE | 2021-01-23 16:20 | NUR ---
PLAN OF CARE: PHYSICIAN INFORMS THAT THE PT IS MEDICALLY STABLE FOR D/C TO SNF. PT INITIALLY CHOSE [facility] SNF. HOWEVER PT'S INSURANCE IS OON WITH NO OON BENEFITS THERE. CM PROVIDED IN-NETWORK SNF LIST FOR THE PT. CM FAXED SNF REFERRAL TO [facility]. CM AWAITING RETURN CALL FROM [facility] ADMISSIONS TO DISCUSS ABILITY TO ACCEPT THE PT. CM WILL REMAIN AVAILABLE TO ASSIST AND FOLLOW NEEDED.
--- NOTE | 2021-01-23 18:36 | NUR ---
Pt now has PICC line to NAZANIN for antibiotics which will continue at discharge. Discharge plan for SNF placement. Pure wick remains in place for urinary incontinence. VSS. Will continue to monitor.
[2021-01-23 20:00] VITALS: BP 143/93
[2021-01-24 01:46] VITALS: BP 137/92
[2021-01-24 06:08] VITALS: BP 156/94
--- NOTE | 2021-01-24 07:20 | NUR ---
CHANGE OF SHIFT REPORT GIVEN PATIENT SEEN AT BEDSIDE, IN BED ASLEEP ASSUMED PATIENT CARE
[2021-01-24 08:00] VITALS: BP 155/98
[2021-01-24 11:07] LABS: GLOBULIN TOTAL 3.8 g/dL (2.2-3.9); M-SPIKE Not Observed g/dL (Not Observed)
[2021-01-24 11:35] VITALS: BP 102/56
--- NOTE | 2021-01-24 12:57 | NUR ---
PLAN OF CARE: PHYSICIAN INFORMS THAT THE PT IS MEDICALLY STABLE TO D/C TO SNF. SNF PENDING ACCEPTANCE AND INSURANCE AUTH. PT'S INITIAL CHOICE DECLINED D/T PT'S INSURANCE BEING OON WITH NO OON BENEFITS. CM PROVIDED PT WITH IN-NETWORK SNF LIST. [facility] CM FA[facility]ED [facility] REFERRAL TO [facility]. [facility] REQUEST PT'S COVID VACCIINATION STATUS. CM TO F/U WITH MP TO INFORM OF THIS. CM WILL REMAIN AVAILABLE TO ASSIST AND FOLLOW NEEDED.
--- NOTE | 2021-01-24 13:33 | NUR ---
WOUND NURSE: PATIENT SEEN TODAY AND REASSESSED. WOUND PICTURED AND NOW MEASURING 5.5 X 1.0 X 0.1 CM. CONTAINS PINK AND RED NONGRANULATING TISSUE IN THE WOUND BED. SMALL AMOUNT OF SEROUS DRAINAGE. PATIENT REINSTRUCTED ON MEASURES TO PROMOTE HEALING AND PREVENT COMPLICATIONS. STATES SHE UNDERSTANDS.
[2021-01-24 16:00] VITALS: BP 147/83
[2021-01-24 20:30] VITALS: BP 142/94
--- NOTE | 2021-01-25 07:36 | NUR ---
PATIENT SLEPT MOST OF THE NIGHT. NAZANIN PICC REMAINS SL. PATIENT WAS GIVEN NAUSEA MEDICINE ONCE WITH GOOD RELIEF. PATIENT COULD POSSIBLY DC TODAY TO SNF. WILL CONTINUE TO MONITOR.
[2021-01-25 16:45] VITALS: BP 158/75
--- NOTE | 2021-01-25 17:14 | NUR ---
PLAN OF CARE: PLAN FOR THE PT TO D/C PENDING SNF ACCEPTANCE AND INSURANCE AUTH. [facility] DECLINED PT D/T INSURANCE. [facility] IN-NETWORK, BUT DECLINED PT. [facility] (BOTH LISTED IN-NETWORK) BUT INFORMED BY ADMISSIONS THAT PT'S INS IS OON AND DECLINED PT. [facility] INFORMS THAT THEY ARE [place] WITH PT'S INSURANCE AND WORKING TO OBTAIN AUTH. [facility] WILL CONTACT CM TO INFORM WHEN AUTH IS APPROVED. PT INFORMED. CM WILL REMAIN AVAILABLE TO ASSIST AND FOLLOW NEEDED. [facility] ([facility]) PHONE: [phone] FAX: [phone]
[2021-01-25 17:53] VITALS: BP 133/72
[2021-01-25 22:00] VITALS: BP 136/89
[2021-01-26 07:56] VITALS: BP 147/107
[2021-01-26 15:30] VITALS: BP 138/93
[2021-01-26 22:00] VITALS: BP 143/84
--- NOTE | 2021-01-27 07:15 | NUR ---
PT SLEPT WELL OVERNIGH. AOX4, FORGETFUL AT TIMES. NAZANIN PICC SL, ABX GIVEN ORDERED. L HAND SL. ROOM AIR. PT TURNED AND REPOSITIONED Q2 HOURS AND PRN FOR SKIN CARE AND COMFORT. PUREWICK IN PLACE DRAINING YELLOW URINE. L BUTTOCK DRSG CDI. DIVINA CARE GIVEN AND BARRIER CREAM APPLIED. ABLE TO USE CALL LITE AND MAKE NEEDS KNONW. BED ALARM ON FOR SAFETY. UP WITH ASSIST WALKER. REMAINS ON CONTACT ISOLATION FOR ESBL URINE.
[2021-01-27 08:00] VITALS: BP 167/93
[2021-01-27 20:05] VITALS: BP 137/80
--- NOTE | 2021-01-27 20:05 | NUR ---
AWAKENED FOR HS REASSESSMENT. GOOD BLOOD RETURN FROM RIGHT UPPER ARM SINGLE LUMEN PICC LINE. CALL LIGHT WITHIN REACH.
--- NOTE | 2021-01-28 04:56 | NUR ---
RESTED QUIETLY. TURNS SELF IN BED. REMAINS ON IV ANTIBIOTIC. HOURLY ROUNDING IN PROGRESS.
[2021-01-28 08:00] VITALS: BP 159/100
--- NOTE | 2021-01-28 11:30 | NUR ---
PT DISCVHARGED TPO REDANASTACIA ON [place]. REPORT CALLED TO [facility]. RIGHT UPPER ARM LEFT IN HER ARM SO SHE CAN GET IV ANTIBIOTICS. PT HAD A WOUND ON HER BUTTOCKS BUT IT HAS HEALED, NO PICTURE TAKEN. PT DISCHARGE TO THE NURSING FACILITY.
== END 2021-01-28 11:00 | DRG 689 ==
LOC: M.ERS 12:56 → M.TBA-ER 16:09 → M.2W 18:40 → M.TBA-ER 18:40 → M.2W 21:30 → M.3W 01-25 21:11
PROVIDERS: Emergency Medicine; ADMIT Internal Medicine; ATTEND Internal Medicine
PROC: 05HY33Z Insertion of Infusion Device into Upper Vein, Percutaneous Approach (ICD-10-PCS; principal; 2021-01-23)
DX: N39.0 Urinary tract infection, site not specified (principal); E43 Unspecified severe protein-calorie malnutrition; G93.41 Metabolic encephalopathy; E87.1 Hypo-osmolality and hyponatremia; Z16.12 Extended spectrum beta lactamase (ESBL) resistance; Z96.651 Presence of right artificial knee joint; K21.9 Gastro-esophageal reflux disease without esophagitis; I50.9 Heart failure, unspecified; J44.9 Chronic obstructive pulmonary disease, unspecified; L89.309 Pressure ulcer of unspecified buttock, unspecified stage; F17.210 Nicotine dependence, cigarettes, uncomplicated; H54.61 Unqualified visual loss, right eye, normal vision left eye; B96.20 Unspecified Escherichia coli [E. coli] as the cause of diseases classified elsewhere; K44.9 Diaphragmatic hernia without obstruction or gangrene; D64.9 Anemia, unspecified; E53.8 Deficiency of other specified B group vitamins; I11.0 Hypertensive heart disease with heart failure; R53.81 Other malaise; E88.09 Other disorders of plasma-protein metabolism, not elsewhere classified; Z20.822 Contact with and (suspected) exposure to COVID-19; Z90.710 Acquired absence of both cervix and uterus; Z88.0 Allergy status to penicillin; Z68.27 Body mass index [BMI] 27.0-27.9, adult; Z86.73 Personal history of transient ischemic attack (TIA), and cerebral infarction without residual deficits